=== PATIENT | female | born 1955 | race Caucasian/White ===

== ENCOUNTER 2024-01-22 13:43 | Outpatient (CLI) | payer MEDICARE, SELFPAY ==
[2024-01-22 15:07] LABS: Appearance Urine Clear (Clear); Bacteria Urine None Seen /hpf; Bilirubin Urine Negative (Negative); Blood Urine Negative (Negative); Color Urine Yellow (Yellow); Glucose Urine UA Negative (Negative); Ketones Urine Negative (Negative); Leukocyte Esterase Ur Trace LEU/UL (Negative); Nitrate Urine Negative (Negative); Non Pathogenic Casts 0-2; Protein Urine Negative (Negative); RBC Urine 0-2 /hpf (0-2); Specific Grav Ur 1.017 (1.001-1.035); Squamous Epithelial Cell Urine None Seen /hpf (Few); Urobilinogen Urine 0.2 mg/dL (<2.0); WBC Urine 0-5 /hpf (0-3)
[2024-01-22 15:09] LABS: INR 0.9; Prothrombin Time 12.6 Seconds (11.1-14.7)
[2024-01-22 15:10] LABS: Albumin Level 4.3 g/dL (3.5-5.1); Partial Thromboplastin Time 26.4 Seconds (22.3-36.8)
[2024-01-22 15:21] LABS: Add Urine Microscopic? YES
[2024-01-22 16:34] LABS: MRSA (PCR) NOT DETECTED (NOT DETECTE)
[2024-01-22 17:29] LABS: Hemoglobin A1C 5.1 % (<5.7)
[2024-01-22 18:01] LABS: Urine Cotinine NEGATIVE
== END 2024-01-22 13:44 | disposition home or self-care (01) ==
LOC: ANHSURGERY 13:49
PROVIDERS: PCP Physician Assistant Medical; Visit Provider Orthopaedic Surgery
DX: Z01.818 Encounter for other preprocedural examination (principal); M17.11 Unilateral primary osteoarthritis, right knee
CPT/HCPCS: 80307; 81001; 82040; 83036; 85610; 85730; 87641

== ENCOUNTER 2024-02-07 01:01 | Day surgery (SDC) | payer MEDICARE, SELFPAY ==
[2024-01-22 13:54] VITALS: BMI 38.2
--- NOTE | 2024-01-22 14:08 | PC.NURSE ---
Addendum entered by Agatha Bean RN 01/22/24 14:29: PROCEDURE TIME 7:30 AM Original Note: Report to the Outpatient Waiting Room, entrance under the green pavilion located off [facility], at time __6:00 AM on date __02/07/24____. Planned Procedure Time: _7:330 AM . Time changes happen often and if your time is changed the preop area will call you the afternoon before. - You and your visitor will be asked to self-screen and do not enter if you have any COVID symptoms. - A mask is optional within the hospital at this time. Patients may have clear liquids (water, carbonated beverages, clear teas, apple juice) until 3 hours prior to surgery ( 4:30 AM)with a maximum of 20 ounces. - No food from midnight until time of surgery - Infants may have breast milk until 4 hours before surgery, infant formula 6 hours prior to surgery. - Children will be allowed to drink immediately following surgery. If applicable, please bring a bottle or sippy cup to assist with drinking. Juice, water, soda, and popsicles are readily available. For infants on formula, please bring formula the day of surgery. Pacifiers are allowed. Take the following medications with a SIP of water the morning of surgery: __NONE DO NOT STOP ANY OF YOUR OTHER PRESCRIPTION MEDICATIONS PRIOR TO SURGERY ?EXCEPT THE FOLLOWING Medications to discontinue per physician ___HOLD ALEVE PER DR ORTA. HOLD ALL VITAMINS AND SUPPLEMENTS 3 DAYS PRE OP.LAST DOSE 02/03/24 TOTAL JOINT CLASS 01/24/24 AT 10AM Please no make-up, nail dominican, hairspray, perfume, deodorant, or body powder the day of surgery. No jewelry (including any body piercings) or valuables the day of surgery, leave them at home. Please take a shower or bath the night before, or the morning of, surgery with an antibacterial soap. Wear comfortable, loose fitting clothing. Children are encouraged to wear pajamas. - Jewelry must be removed prior to entering the operating room. Rings and piercings that are not removed may be cut off. - The hospital will not accept responsibility for valuables. - Please leave all valuables, including medications, at home the day of surgery. If you are going home after surgery, a licensed driver license agent must drive you home. - NO public transportation without another adult if you receive anesthesia. - We recommend that an adult stay with you for 24 hours following discharge. - We also recommend that you do not drive, make important decision, drink alcoholic beverages, or take any drugs that were not prescribed by your health care provider for at least 24 hours after your discharge time. Follow any additional instructions given to you from your surgeon. If you or anyone in your household have experienced Covid symptoms in the past week, please notify your surgeon or the nurse liaison at the phone number below for possible testing. VERBAL AND WRITTEN instructions given to __PATIENT and asked if any additional questions and then verbalized understanding. Patient advised to call surgeon office or pre surgery nurse liaison [phone] if any additional questions.
--- NOTE | 2024-02-06 15:53 | WPDANESEPPF ---
Anes - Initial Pre Proc Eval Procedure: Operation Date: 02/07/24 07:30 Proposed Procedures p Right Total Knee Arthroplasty, Left Knee Cortisone Injection - Ace Nelson MD Date/Time: 02/06/24 15:53 Surgeon: Ace Nelson MD Pre Op Diagnosis: bilateral knee djd Patient Data Age: 68 Gender: F Height: 1.52 m Weight: 88.8 kg Allergies Allergy/AdvReac Type Severity Reaction Status Date / Time bupropion [From Wellbutrin] AdvReac Intermediate Other Verified 02/07/24 06:34 Home Medications Medication Instructions Recorded Confirmed Type cholecalciferol (vitamin D3) 50 50 mcg PO DAILY 12/28/22 02/07/24 History mcg (2,000 unit) capsule cyanocobalamin (vitamin B-12) 2,000 mcg PO DAILY #90 tabs 08/16/23 02/07/24 Rx 2,000 mcg tablet calcium carbonate 600 mg-vitamin 1 tablet PO BID 01/22/24 02/07/24 History D3 10 mcg (400 unit) tablet (Calcium 600 + D(3)) naproxen sodium 220 mg capsule 220 mg PO Q12H PRN Pain 01/22/24 02/07/24 History (Aleve) Patient hx anesthesia problems: none Family hx anesthesia problems: none Results Review: All pre-operative results and documents have been reviewed as part of the pre-operative evaluation. [facility] Past Medical History Medical History Arthritis of left knee Arthritis of right knee Asthma Chronic pain of left knee Chronic pain of right knee Dyslipidemia Fatigue Fusion of spine, cervical region C5-C6, C6-C7, Dr. Arreola Obesity Osteoporosis Primary osteoarthritis of left knee Primary osteoarthritis of right knee Pulmonary nodule deemed benign. Vitamin B12 deficiency Vitamin D deficiency Surgical History Surgical History H/O arthroscopic knee surgery bilateral H/O arthroscopy of left knee H/O: hysterectomy History of bilateral carpal tunnel release Hx of cholecystectomy S/P foot surgery, left tendon of heel and spur Family History Family History Other Diabetes mellitus Family history of arthritis Hypertension Social History Social History Smoking status: Never smoker Additional smoking assessment comments: DENIES ANY FORM OF TOBACCO USE Alcohol intake: current Alcohol use details: special occasion Substance use: never Lack of Transportation: No Lack of Food: Never True Current Housing: I Have Housing Concerned About Future Housing: No Difficulty Paying Gas/Electric Bills: No Difficulty Paying for Meds: No Currently Unemployed: No Education: High School Diploma/GED Difficulty w/ Childcare or Family Care: No Living arrangements: with family Occupation/Education: retired Gender identity (if verbalized by the patient): Female Spiritual care concerns: No Anes - Eval Final PreProcedure Day of Procedure Patient weight: obese Heart: regular rate and rhythm Lungs: clear to auscultation Airway: Mallampati scale class II Neurological: alert and oriented Last oral intake: >/= 8 hours ASA classification: II Emergent: no Anesthetic plan: proceed Anesthesia type and monitoring: general LMA and standard monitoring
[2024-02-07] VITALS (13 sets, daily range): BP systolic 102–141; BP diastolic 46–71; PULSE 74–90; RESP 14–18; TEMP 36.1–36.6; O2SAT 93–100
--- NOTE | ~2024-02-07 | XR_ITS ---
EXAMINATION: [id number] DATE: 02/07/2024 10:04 INDICATION: Total right knee arthroplasty. Postop. TECHNIQUE: 2 views of right knee were obtained. COMPARISON: Right knee radiographs 12/11/2023 FINDINGS: There is a total right knee arthroplasty without patellar resurfacing in near-anatomic alig nment. No fracture. There is gas in the joint and soft tissues, consistent with recent surgery. Anter ior skin carmelo are noted. IMPRESSION: 1. Total right knee arthroplasty in near-anatomic alignment. Reviewed, dictated and finalized at location A.
[2024-02-07] MEDS: LACTATED RINGERS 1,000 ML 30 ML IV CONT ×2 (06:25→10:01)
[2024-02-07] MEDS: ACETAMINOPHEN 500 MG TABLET 1000 MG PO (06:25)
[2024-02-07] MEDS: TRANEXAMIC ACID 1,000MG/ISO100 1,000 MG/100 ML BAG 200 MG IVPB (06:30)
--- NOTE | 2024-02-07 07:09 | WPDHPUPDATE1 ---
History and Physical Update Update Date/Time: 02/07/24 07:09 History and Physical has been reviewed, including an updated exam of the patient. There are NO changes in the patient's condition. Risks, benefits, and alternatives have been discussed and questions answered. Patient agrees to proceed with procedure.
--- NOTE | 2024-02-07 07:29 | WPDANESPNB ---
Anes - Peripheral Nerve Block Date/Time: 02/07/24 07:29 I have discussed with the patient/family/POA the placement of a peripheral nerve block for post-operative pain management, including associated risks, benefits, complications, and side effects. Alternative methods of post-operative analgesia were detailed. Questions were solicited and answers provided to the satisfaction of the patient/family/POA. Time-Out: A pre-procedural Time-Out was completed immediately before starting the procedure and confirmed: Patient Identification, Site, Procedure, Patient Position and the Availability of Requisite Equipment. Clinical Indications: Acute post-operative pain management requested by the operative surgeon. Nerve Block Insertion Note Anes-nerve block: adductor canal right Patient position: supine Skin prep: chlorhexidine Needle: 22 gauge, stimulating, insulated echogenic needle. Needle length: 80 mm Technique: ultrasound Injectate: bupivacaine 0.5% with epi 5 mcg/ml (30cc - no epi) Observations: tolerated well Complications: none Procedure start time:: 719 Procedure end time:: 722
[2024-02-07] MEDS: ceFAZolin 2 GM/D5W 50 ML 2 GM/50 ML BAG IVPB ×3 (07:30→23:13)
[2024-02-07] MEDS: SODIUM CHLORIDE 0.9% IV 37.7 ML, MORPHINE SULFATE INJ (*CRX) 2 MG, ROPivacaine HCL 1% 2... INFILTRATE (08:08)
[2024-02-07] MEDS: methylPREDNISolone ACETATE 80 MG/ML VIAL IM (08:45)
[2024-02-07] MEDS: BUPivacaine HCL 0.5% 10 ML AMP 5 ML INFILTRATE (08:46)
[2024-02-07] MEDS: TRANEXAMIC ACID 1,000 MG/10 ML AMPUL 1000 MG IV PUSH (08:57)
--- NOTE | 2024-02-07 09:41 | W.PM.PROC2 ---
Procedure Note - Detailed Date of Procedure 02/07/24 Pre-op Diagnosis bilateral knee djd Post-op Diagnosis Same Procedure Performed RIGHT TKA AND LEFT KNEE INJECTION Surgeon Ace Nelson MD Anesthesia General Description of Procedure THE RIGHT KNEE WAS PREPPED AND DRAPED IN THE STERILE FASHION. THERE WAS A 15 DEGREE FLEXION CONTRACTURE. A MIDLINE SKIN INCISION WAS MADE. A MEDIAL PARAPATELLAR ARTHROTOMY WAS MADE. THE PATELLA WAS EVERTED. THERE WAS TRICOMPARTMENT DJD. THERE WAS MINIMAL PATELLA DJD. AN INTRAMEDULLARY HAMZAH WAS PLACED IN THE FEMUR. A DISTAL FEMORAL CUT WAS MADE IN 5 DEGREES OF VALGUS REMOVING APPROXIMATELY 9 MM OF BONE FROM THE DISTAL FEMUR. THE FEMUR WAS SIZED TO 62.5. A 62.5 FEMORAL CUTTING BLOCK WAS PLACED IN 3 DEGREES OF EXTERNAL ROTATION AND IN ALIGNMENT WITH CANDI'S LINE AND THE TRANSEPICONDYLAR AXIS. ANTERIOR POSTERIOR AND CHAMFER CUTS WERE MADE. THE CUTS WERE EXCELLENT. NEXT AN INTRAMEDULLARY CUTTING GUIDE WAS PLACED IN THE TIBIA. A TRANS TIBIAL CUT WAS MADE ALONG THE LONG AXIS OF THE TIBIA. APPROXIMATELY 10 MM OF BONE WAS REMOVED FROM THE HIGH SIDE OF THE TIBIA. THE TIBIA WAS THEN PLANED TO A SMOOTH SURFACE. POSTERIOR FEMORAL OSTEOPHYTES WERE REMOVED FROM THE FEMORAL CONDYLES. A 71 TIBIAL TRIAL WAS PLACED IN ALIGNMENT WITH THE 1/3 MEDIAL ASPECT OF THE TIBIAL TUBERCLE. THEN A 62.5 FEMORAL TRIAL COMPONENT WAS PLACED. BOTH HAD EXCELLENT FITS. EVENTUALLY A 16 MM POLYETHYLENE TRIAL COMPONENT WAS PLACED. THE KNEE WAS TAKEN THROUGH A RANGE OF MOTION. THE KNEE CAME OUT TO FULL EXTENSION. THERE WAS NO ABNORMAL TILT TO THE PATELLA. THERE WAS GOOD A/P AND VARUS/VALGUS STABILITY. THERE WAS NO EXCESSIVE ROLL BACK WITH FLEXION. THE TRIAL COMPONENTS WERE REMOVED. THEN A 62.5 FEMORAL COMPONENT AND 71 TIBIAL COMPONENT WITH A 16 POLYETHYLENE COMPONENT WERE CEMENTED INTO PLACE. ONCE THE CEMENT WAS HARD THE KNEE WAS TAKEN THROUGH A ROM AGAIN AND FOUND TO BE STABLE WITH NO PATELLA TILT NO EXCESSIVE ROLL BACK WITH FLEXION AND GOOD STABILITY WITH COMPLETE AND FULL EXTENSION. THE KNEE WAS IRRIGATED WITH STERILE BETADINE AND WATER FOR ABOUT 3 MINUTES. THE BLEEDERS WERE CAUTERIZED. THE ARTHROTOMY WAS REPAIRED WITH NUMBER 1 VICRYL. THE SUB CUTANEOUS LAYER WITH 2-0 VICRYL AND THE SKIN WITH IJEOMA. THE WOUND WAS WASHED AND A STERILE DRESSING WAS APPLIED. NEXT THE LEFT KNEE JOINT WAS INJECTED WITH DEPO MEDROL 80 MG 1 CC AND MARCAINE 0.5% 4 CCs. PATIENT WAS EXTUBATED. Estimated Blood Loss -150.0 Pathology None sent Complications No immediate complications Condition Stable Disposition PACU
[2024-02-07] MEDS: fentaNYL CITRATE INJ (*CRX) 100 MCG/2 ML VIAL 25 MCG IV PUSH ×2 (10:48→10:51)
--- NOTE | 2024-02-07 11:29 | ADMGEN ---
This patient, Dayanna Perez, was admitted to [facility] Surg Room 331-02. Patient/family oriented to hospital policies and general routines including ID bracelet, bed and alarms, visiting hours, pain management, procedures, bathroom and other care routines, personal items, smoking policy, room service/diet, and visiting hours. Information on how to activate the Rapid Response Team has been discussed. Patient/Family are encouraged to report perceived risks to care and to ask questions if they do not understand what they are told or what they should do.
[2024-02-07] MEDS: ASPIRIN 325 MG ENTERIC TABLET PO ×2 (11:39→20:52)
[2024-02-07] MEDS: polyethylene glycoL 3350 17 GM POWD.PACK PO (11:39)
[2024-02-07] MEDS: SENNA/DOCUSATE SODIUM TABLET 2 TAB PO ×2 (11:39→17:24)
[2024-02-07] MEDS: CYANOCOBALAMIN 1,000 MCG TABLET 2000 MCG PO (11:40)
[2024-02-07] MEDS: FAMOTIDINE 20 MG TABLET PO ×2 (11:40→20:52)
[2024-02-07] MEDS: CHOLECALCIFEROL 1,000 UNITS TABLET 2000 UNITS PO (11:40)
[2024-02-07] MEDS: CALCIUM/VITAMIN D 500 MG/5 MCG (200 I.U.) TABLET PO ×2 (11:40→17:24)
[2024-02-07] MEDS: KETOROLAC 15 MG/ML VIAL (*BKC) IV PUSH ×3 (11:40→23:10)
[2024-02-07] MEDS: oxyCODONE/ACETAMINOPHEN (*CRX) 10-325 MG TABLET 1 TAB PO ×2 (14:18→20:55)
[2024-02-08 00:42] VITALS: BP 120/62; PULSE 75; RESP 16; TEMP 36.8; O2SAT 94
[2024-02-08 04:42] VITALS: BP 109/43; PULSE 75; RESP 16; TEMP 36.9; O2SAT 95
[2024-02-08] MEDS: ceFAZolin 2 GM/D5W 50 ML 2 GM/50 ML BAG IVPB (06:04)
[2024-02-08] MEDS: KETOROLAC 15 MG/ML VIAL (*BKC) IV PUSH ×2 (06:04→11:37)
[2024-02-08 07:19] LABS: Basophils Absolute Auto 0.1 K/mm3 (0.0-0.1); Basophils Percent Auto 0.5 % (0.2-1.2); Eosinophils Percent Auto 0.2 % (0-4.4); Hemoglobin 12.4 g/dL (12.0-15.0); Immature Granulocyte Absolute 0.16 K/mm3 (0.00-0.031); Immature Granulocyte Percent A 1.5 % (0-0.5); Lymphocytes Absolute Auto 1.77 K/mm3 (0.9-3.2); Lymphocytes Percent Auto 16.8 % (18.3-44.2); Mean Corpuscular Hemoglobin 28.3 pg (26-34); Mean Corpuscular Volume 91.3 fl (80-100); Monocytes Absolute Auto 0.8 K/mm3 (0.1-0.6); Monocytes Percent Auto 7.4 % (2.6-8.5); Neutrophils Absolute Auto 7.8 K/mm3 (1.3-6.7); Neutrophils Percent Auto 73.6 % (45.5-73.1); Platelet Count Result 223 k/mm3 (150-375); Red Blood Count 4.38 M/mm3 (4.2-5.4); Red Cell Distribution Width 13.3 % (11.5-14.5); White Blood Count 10.5 K/mm3 (4.5-10.0)
[2024-02-08 07:32] LABS: Anion Gap 4 mmol/L (4-12); Blood Urea Nitrogen 13 mg/dL (7-17); Calcium 9.2 mg/dL (8.4-10.2); Carbon Dioxide 30 mmol/L (22-30); Chloride 105 mmol/L (98-107); Estimated CRCL calculation 65 ml/min; Estimated Glomerular Filt Rate > 60; Glucose 76 mg/dL (65-110); Potassium 3.7 mmol/L (3.4-5.0); Sodium 139 mmol/L (137-145)
[2024-02-08] MEDS: ASPIRIN 325 MG ENTERIC TABLET PO (07:46)
[2024-02-08] MEDS: CALCIUM/VITAMIN D 500 MG/5 MCG (200 I.U.) TABLET PO (07:46)
[2024-02-08] MEDS: CHOLECALCIFEROL 1,000 UNITS TABLET 2000 UNITS PO (07:47)
[2024-02-08] MEDS: CYANOCOBALAMIN 1,000 MCG TABLET 2000 MCG PO (07:47)
[2024-02-08] MEDS: polyethylene glycoL 3350 17 GM POWD.PACK PO (07:47)
[2024-02-08] MEDS: oxyCODONE/ACETAMINOPHEN (*CRX) 5-325 MG TABLET 1 TABLET PO (07:47)
[2024-02-08] MEDS: FAMOTIDINE 20 MG TABLET PO (07:57)
[2024-02-08] MEDS: SENNA/DOCUSATE SODIUM TABLET 2 TAB PO (07:57)
[2024-02-08 08:00] VITALS: BP 105/70; PULSE 64; RESP 20; TEMP 36.1; O2SAT 100
--- NOTE | 2024-02-08 11:39 | PM.PNORT ---
Progress Note: A&P Assessment and Plan (1) S/P total knee arthroplasty: Qualifiers: Laterality: right Qualified Code(s): Z96.651 - Presence of right artificial knee joint Code(s): Z96.659 - Presence of unspecified artificial knee joint Status: Acute Assessment and Plan: POD #1 : Right TKA Continue PT/OT. WBAT. Walker. HIGH FALL RISK. Continue pain control. Ice Knee. Protect skin. DVT prophylaxis with Aspirin. SCDs. Incentive Spirometry Use reviewed. Monitor Dressing. Change prior to discharge. Bowel Regimen. Dispo: Home with Home Health pending progress with PT/OT Plan Reviewed history, exam, radiographs and current labs with attending MD and covering surgeon, Dr. Nelson, who agrees with current plan as indicated above. No further recommendations from Dr. Nelson at this time. Subjective Subjective Date/Time Seen: 02/08/24 11:39 Post Op day: 1 Interval history: POD #1: Right TKA Patient doing very well. Worked well with PT/OT. Family at bedside. Ready and confident for d/c home today. Review of Systems Review of Systems: All systems reviewed & are unremarkable except as noted in HPI and below Constitutional: Constitutional: Denies fever(s) and Denies headache(s) ENT: Denies headache(s) Cardiovascular: Cardiovascular: Denies chest pain, Denies diaphoresis, Denies palpitations and Denies dyspnea Respiratory: Respiratory: Denies dyspnea Gastrointestinal: Gastrointestinal: Denies abdominal pain, Denies constipation, Denies nausea and Denies vomiting Genitourinary: Genitourinary: Reports nocturia and Denies dysuria Musculoskeletal: Musculoskeletal: Reports arthralgias (Right Knee ) and Reports joint swelling (Right Knee ) Neurologic: Denies headache(s) Endocrine: Endocrine: Denies palpitations Exam Const: General: comfortable and no acute distress Resp: Effort & Inspection: normal respiratory effort Cardio: Rate: regular rate Rhythm: regular rhythm GI: GI Palp: Yes Soft to palpation, No Tenderness to palpation present (GI) and No Guarding due to palpation present (GI) Skin: General skin exam: wounds noted Wounds: wounds noted Other: Incision c/d/i. No surrounding redness/warmth. No hematoma. Mild ecchymosis. No wound dehiscence Neuro: Cognition (Neuro): normal cognition Other: NV intact aside from block. Moves toes. Sensation intact to light touch. +ankle dorsiflexion/plantarflexion. Extrem: Right lower extremity: normal to inspection, knee Details: tenderness (diffuse, mild ) Location: of the patella, swelling (diffuse, consistent with surgical intervention ), abnormal ROM Details: pain with active ROM during, pain with passive ROM during and with range as follows (limited due to recent surgical intervention ); able to extend lower leg actively and ecchymosis (mild ), lower leg (Negative Meche's Sign ) Details: normal to inspection; no erythema and no tenderness, ankle (+ankle dorsiflexion/plantarflexion ) Details: normal to inspection, no edema and normal ROM; no tenderness, no swelling and no ecchymosis and foot Details: normal capillary refill, normal to inspection, vascular exam Details: dorsalis pedis pulse present and motor-sensory exam Details: light-touch normal; no tenderness Left lower extremity: normal to inspection Psych: Mental Status: mental status grossly normal Objective Data Vital Signs Vital Signs: Vital Signs - 24 hr 02/07/24 11:55 02/07/24 12:55 02/07/24 13:15 Temperature 36.6 C 36.6 C Pulse Rate 77 84 Respiratory Rate 18 18 Blood Pressure 128/58 L 134/64 Pulse Oximetry 99 99 Oxygen Delivery Room Air 02/07/24 16:03 02/07/24 20:42 02/08/24 00:42 Temperature 36.1 C L 36.4 C L 36.8 C Pulse Rate 74 75 75 Respiratory Rate 18 16 16 Blood Pressure 127/52 L 102/46 L 120/62 Pulse Oximetry 100 100 94 Oxygen Delivery 02/08/24 04:42 02/08/24 07:45 02/08/24 08:00 Temperature 36.9 C 36.1 C L Pulse Rate
--- NOTE | 2024-02-08 11:40 | PM.DS ---
DS: Admitting Diagnosis Discharge Date 02/08/2024 Admitting Diagnosis Right Knee DJD DS: Discharge Diagnosis Discharge Diagnosis (1) S/P total knee arthroplasty: Qualifiers: Laterality: right Qualified Code(s): Z96.651 - Presence of right artificial knee joint Code(s): Z96.659 - Presence of unspecified artificial knee joint Status: Acute Assessment and Plan: POD #1 : Right TKA Continue PT/OT. WBAT. Walker. HIGH FALL RISK. Continue pain control. Ice Knee. Protect skin. DVT prophylaxis with Aspirin. SCDs. Incentive Spirometry Use reviewed. Monitor Dressing. Change prior to discharge. Bowel Regimen. Dispo: Home with Home Health pending progress with PT/OT Plan Reviewed history, exam, radiographs and current labs with attending MD and covering surgeon, Dr. Nelson, who agrees with current plan as indicated above. No further recommendations from Dr. Nelson at this time. DS: Summary Hospital Course Reason for hospitalization: Right TKA Hospital Course: 68 year old female admitted s/p Right TKA for postoperative medical management, pain control and mobilization with PT/OT. Patient progressed well with PT/OT. Pain and vitals remained stable throughout. The patient has been cleared to be discharged home with home health at this time. All discharge care instructions reviewed at depth. New medications reviewed. Follow up planned for 3 weeks in the outpatient orthopedic clinic with Dr. Nelson. Dr. Nelson in agreement with safe discharge at this time. Status at Discharge Functional status at discharge: uses cane/walker Overall status at discharge: patient is progressing back to baseline Time Spent with Patient Time attestation: Total time spent providing and/or coordinating discharge services: Exam Const: General: comfortable and no acute distress Resp: Effort & Inspection: normal respiratory effort Cardio: Rate: regular rate Rhythm: regular rhythm Skin: General skin exam: wounds noted Wounds: wounds noted Other: Incision c/d/i. No surrounding redness/warmth. No hematoma. Mild ecchymosis. No wound dehiscence Neuro: Cognition (Neuro): normal cognition Other: NV intact aside from block. Moves toes. Sensation intact to light touch. +ankle dorsiflexion/plantarflexion. Extrem: Right lower extremity: normal to inspection, knee Details: tenderness (diffuse, mild ) Location: of the patella, swelling (diffuse, consistent with surgical intervention ), abnormal ROM Details: pain with active ROM during, pain with passive ROM during and with range as follows (limited due to recent surgical intervention ); able to extend lower leg actively and ecchymosis (mild ), lower leg (Negative Meche's Sign ) Details: normal to inspection; no erythema and no tenderness, ankle (+ankle dorsiflexion/plantarflexion ) Details: normal to inspection, no edema and normal ROM; no tenderness, no swelling and no ecchymosis and foot Details: normal capillary refill, normal to inspection, vascular exam Details: dorsalis pedis pulse present and motor-sensory exam Details: light-touch normal; no tenderness Left lower extremity: normal to inspection Psych: Mental Status: mental status grossly normal DS: Data Data Completed and Pending Labs on day of discharge: Labs from last 24 hours 02/08/24 05:43 WBC 10.5 H RBC 4.38 Hgb 12.4 Hct 40.0 MCV 91.3 MCH 28.3 MCHC 31.0 L RDW 13.3 Plt Count 223 MPV 11.0 H Immature Gran % (Auto) 1.5 H Neut % (Auto) 73.6 H Lymph % (Auto) 16.8 L [place] % (Auto) 7.4 Eos % (Auto) 0.2 Baso % (Auto) 0.5 Lymph # (Auto) 1.77 [place] # (Auto) 0.8 H Eos # (Auto) 0.0 Baso # (Auto) 0.1 Abs Immat Gran (auto) 0.16 H Absolute Neuts (auto) 7.8 H Absolute Nucleated RBC 0.000 Nucleated RBC % 0.0 Sodium 139 Potassium 3.7 Chloride 105 Carbon Dioxide 30 Anion Gap 4 BUN 13 Creatinine 0.70 Estim Creat Clear Calc 65 Estimated GFR > 60 Glucose 76 Ca
[2024-02-08] MEDS: oxyCODONE/ACETAMINOPHEN (*CRX) 10-325 MG TABLET 1 TAB PO (11:47)
== END 2024-02-08 12:14 | disposition home health service (06) ==
LOC: ANHSURGERY 05:53 → ANH3MEDSUR 11:00
PROVIDERS: PCP Physician Assistant Medical; Visit Provider Orthopaedic Surgery
PROC: (CPT 27447; principal; 2024-02-07 07:30)
DX: M17.0 Bilateral primary osteoarthritis of knee (principal); G89.18 Other acute postprocedural pain; M81.0 Age-related osteoporosis without current pathological fracture; E55.9 Vitamin D deficiency, unspecified; E53.8 Deficiency of other specified B group vitamins; E66.9 Obesity, unspecified; Z68.38 Body mass index [BMI] 38.0-38.9, adult
CPT/HCPCS: 27447; 20610; 64447; 36415; 73560; 80048; 80307; 81001; 82040; 83036; 85025; 85610; 85730; 86850; 86900; 86901; 87641; 97110; 97116; 97161; 97165; 97530; 97535; A9270; C1713; C1776; J0171; J0690; J1010; J1100; J1170; J1200; J1885; J2250; J2270; J2405; J2704; J2795; J3010; J3370; J7120

== ENCOUNTER 2024-04-19 11:00 | Outpatient (RCR) | payer MEDICARE, SELFPAY ==
--- NOTE | 2024-03-08 17:39 | OPREHPOC ---
Outpatient Therapy Plan of Care This is a Multidisciplinary Plan of Care that may contain components documented by all disciplines (PT, OT, and ST.) PT Problem 1 PT Problem #1 Knowledge Deficit PT Goal 1 Goal Pt will be independent in HEP Pt will verbalize understanding of diagnosis and prognosis Target Visit 10 PT Problem 2 PT Problem #2 Pain PT Goal 1 Goal Pt will report lowest pain rating at 0/10 to show improvement in overall discomfort Target Visit 10 PT Goal 2 Goal Pt will report greatest pain level at 3/10 or less to improve ADLs and activities Target Visit 20 PT Problem 3 PT Problem #3 Impaired Range of Motion PT Goal 1 Goal Pt will demo passive ROM 0-130 to improve gait and mobility Target Visit 10 PT Goal 2 Goal Pt will demo active ROM 0-130 to improve gait and mobility Target Visit 20 PT Problem 4 PT Problem #4 Impaired Strength PT Goal 1 Goal Pt will demo strength of 4+/5 in all tested planes Target Visit 20
--- NOTE | 2024-03-08 17:39 | PTOPEVAL1 ---
Assessment and note entered by Ifrah Lott, PT Evaluation Information Assessment Status Evaluation Diagnosis Right total knee replacement ICD-10 Condition Codes (PT) M25.561,R26.9,Weakness R53.1 Onset 02/07/24 Subjective Information Surgery then home health which patient has been discharged from. Has oxycodone for pain but hasn't had to use it yet does not return to MD for 3 months Likes to garden and be outside Reported Pain Level Pain Score 2: Self Report Assessment PT Clinical Summary Pt presents s/p R TKR 02/07/24. She reports minimal pain at the moment, is able to ambulate without AD, and reports she has completed her home health physical therapy. Today she demos decreased active and passive ROM, decreased knee strength, increased swelling, and gait abnormality. Thus patient will benefit from physical therapy to address deficits and obtain maximal independence with least amount of pain. Plan of Care Interventions Electrical Stimulation,Gait Training,Hot Pack/Cold Pack,Intermittent Compression,Manual Therapy, Neuro Re-education,Therapeutic Activities, Therapeutic Exercise,Self-Care/Home Management PT Services Indicated Yes Treatment Frequency and 1-3 x weekly x 20 visits Duration These treatments will address the objective and functional deficits as defined above. The patient will be advanced safely and appropriately in order for the patient to progress towards his/her prior level of function. Additional exercises will be introduced and as well as a comprehensive home exercise program upon discharge, if needed, ?to ensure carryover of functional gains achieved in the clinic. This treatment plan has been reviewed and agreement upon by the patient.
--- NOTE | 2024-04-10 13:27 | PTOPPROG ---
Assessment and note entered by Verenice Rios, PT Re-eval Information Assessment Status Progress Diagnosis Right total knee replacement ICD-10 Condition Codes (PT) M25.561,R26.9,Weakness R53.1 Onset 02/07/24 Subjective Information Pt denies any increased pain. The only time she experience pain with 2/10 intensity rating is after picking beans or working in the yard. Reports she worked all day in the garden yesterday and is feeling sore today. Also reports that she went down on the floor to look at something and accidentally put weight on both knees as she is getting back up. Pt denies falling, states she purposely went down to the floor to see something up close. Assessment PT Clinical Summary Pt is a 68yo female who presents to therapy s/p R TKR 02/07/24. She reports no pain at the moment, is able to ambulate without AD, and reports she has been compliant with the stretching HEPs. She has received outpatient Physical Therapy of a total of 10 visits today. She demos improved mobility and strength and significantly reduced pain levels. However, due to swelling and soft tissue tightness , decreased patellar mobility and decreased ambulation endurance, pt will benefit from additional sessions for therapy to address remaining deficits and prepare for her upcoming series of long distance driving trips that she had planned. Plan of Care Interventions Electrical Stimulation,Gait Training,Hot Pack/Cold Pack,Manual Therapy,Neuro Re-education,Patient/ Caregiver Education,Therapeutic Activities, Therapeutic Exercise Other Interventions IASTM, TAPING PT Services Indicated Yes Treatment Frequency and 3x/wk x 10 visits Duration These treatments will address the objective and functional deficits as defined above. The patient will be advanced safely and appropriately in order for the patient to progress towards his/her prior level of function. Additional exercises will be introduced and as well as a comprehensive home exercise program upon discharge, if needed, ?to ensure carryover of functional gains achieved in the clinic. This treatment plan has been reviewed and agreement upon by the patient.
--- NOTE | 2024-04-24 12:49 | PTOPDC ---
Assessment and note entered by Verenice Rios, PT Evaluation Information Assessment Status Discharge Diagnosis Right total knee replacement ICD-10 Condition Codes (PT) M25.561,R26.9,Weakness R53.1 Onset 02/07/24 Subjective Information Pt denies any increased pain. The only time she experience pain with 2/10 intensity rating is after picking beans or working in the yard. Reports she worked all day in the garden yesterday and is feeling sore today. Also reports that she went down on the floor to look at something and accidentally put weight on both knees as she is getting back up. Pt denies falling, states she purposely went down to the floor to see something up close. Assessment PT Clinical Summary Pt received a total of 13 PT sessions and has demo gains in strength and mobility. Reports no pain with normal activities, however she would feel mild soreness after repeated bending which is relieved with cryotherapy as PT recommended. States compliant with HEPs, no further skilled PT necessary at this time. Plan of Care PT Services Indicated No
--- NOTE | 2024-04-24 12:50 | PTOPDC ---
Assessment and note entered by Verenice Rios, PT Discharge Information Assessment Status Discharge Diagnosis Right total knee replacement ICD-10 Condition Codes (PT) M25.561,R26.9,Weakness R53.1 Onset 02/07/24 Subjective Information Pt denies any increased pain. The only time she experience pain with 1-2/10 intensity rating is after picking beans or working in the yard. Reports she worked all day in the garden yesterday and is feeling sore today. Also reports that she went down on the floor to look at something and accidentally put weight on both knees as she is getting back up. Pt denies falling, states she purposely went down to the floor to see something up close. Assessment PT Clinical Summary Pt received a total of 13 PT sessions and reports has demo gains in strength and mobility. Reports no pain with normal activities, however she would feel mild soreness after repeated bending which is relieved with cryotherapy as PT recommended. States compliant with HEPs, no further skilled PT necessary at this time. Plan of Care PT Services Indicated No
== END 2024-04-25 13:16 | disposition home or self-care (01) ==
LOC: ANHHIPT 11:00
PROVIDERS: PCP Physician Assistant Medical; Visit Provider Orthopaedic Surgery
DX: M17.10 Unilateral primary osteoarthritis, unspecified knee (principal); Z96.659 Presence of unspecified artificial knee joint
CPT/HCPCS: 97014; 97016; 97110; 97112; 97116; 97140; 97161; 97162; 97530; 97750; G0283

== ENCOUNTER 2024-06-21 09:45 | Outpatient (CLI) | payer MEDICARE, SELFPAY ==
[2024-06-21 11:22] LABS: INR 0.9; Partial Thromboplastin Time 23.4 Seconds (22.3-36.8); Prothrombin Time 12.7 Seconds (11.1-14.7)
[2024-06-21 11:59] LABS: Hemoglobin A1C 5.3 % (<5.7)
[2024-06-21 12:02] LABS: Add Urine Microscopic? NO; Appearance Urine Clear (Clear); Bilirubin Urine Negative (Negative); Blood Urine Negative (Negative); Color Urine Yellow (Yellow); Glucose Urine UA Negative (Negative); Ketones Urine Negative (Negative); Leukocyte Esterase Ur Negative LEU/UL (Negative); Nitrate Urine Negative (Negative); Protein Urine Negative (Negative); Specific Grav Ur 1.011 (1.001-1.035); Urobilinogen Urine 0.2 mg/dL (<2.0); pH Urine 5.5 (5.0-9.0)
[2024-06-21 12:09] LABS: Urine Cotinine NEGATIVE
[2024-06-21 12:22] LABS: MRSA (PCR) NOT DETECTED (NOT DETECTE)
== END 2024-06-21 09:46 | disposition home or self-care (01) ==
LOC: ANHSURGERY 09:51
PROVIDERS: PCP Physician Assistant Medical; Visit Provider Orthopaedic Surgery
DX: M17.12 Unilateral primary osteoarthritis, left knee (principal); Z01.818 Encounter for other preprocedural examination
CPT/HCPCS: 80307; 81003; 83036; 85610; 85730; 86850; 86900; 86901; 87641

== ENCOUNTER 2024-07-02 02:36 | Day surgery (SDC) | payer MEDICARE, SELFPAY ==
[2024-06-21 09:55] VITALS: BMI 37.9
--- NOTE | 2024-06-21 10:17 | PC.NURSE ---
Report to the Outpatient Waiting Room, entrance under the green pavilion located off [facility], at time _6:30 AM on date _07/02/24 . Planned Procedure Time: _8:30 AM .? Time changes happen often and if your time is changed the preop area will call you the afternoon before. - You and your visitor will be asked to self-screen and do not enter if you have any COVID symptoms. Please call surgeon if you need to reschedule. - A mask is optional within the hospital at this time. Patients may have clear liquids (water, carbonated beverages, clear teas, apple juice) until 3 hours prior to surgery( 5:30 AM) with a maximum of 20 ounces. - No food from midnight until time of surgery and no smoking - Infants may have breast milk until 4 hours before surgery, formula 6 hours prior to surgery. - Children will be allowed to drink immediately following surgery.? If applicable, please bring a bottle or sippy cup to assist with drinking. Juice, water, soda, and popsicles are readily available.? For infants on formula, please bring formula the day of surgery.? Pacifiers are allowed. Take only the following medications with a SIP of water on the morning of surgery: __NONE DO NOT STOP ANY OF YOUR OTHER PRESCRIPTION MEDICATIONS PRIOR TO SURGERY EXCEPT THE FOLLOWING Medications to discontinue per physician _PT STATES HOLD ALEVE 7 DAYS PRE OP PER DR ORTA LAST DOSE06/24/24. MAY TAKE TYLENOL IF NEEDED FOR PAIN Please no make-up, nail brazilian, hairspray, perfume, deodorant, or body powder the day of surgery.? No jewelry (including any body piercings) or valuables the day of surgery, leave them at home.? Please take a shower or bath the night before, or the morning of, surgery with an antibacterial soap.? Wear comfortable, loose fitting clothing.? Children are encouraged to wear pajamas. - Jewelry must be removed prior to entering the operating room.? Rings and piercings that are not removed may be cut off. - The hospital will not accept responsibility for valuables.? - Please leave all valuables, including medications, at home the day of surgery. If you are going home after surgery, a licensed special events driver must drive you home.? - NO public transportation without another adult if you receive anesthesia. - We recommend that an adult stay with you for 24 hours following discharge. - We also recommend that you do not drive, make important decision, drink alcoholic beverages, or take any drugs that were not prescribed by your health care provider for at least 24 hours after your discharge time. Follow any additional instructions given to you from your surgeon. VEFBAL AND WRITTEN instructions given to _PATIENT and asked if any additional questions and then verbalized understanding. Patient advised to call surgeon office or pre surgery nurse liaison [phone] if any additional questions.
[2024-06-21 10:36] VITALS: BP 130/65; PULSE 68; RESP 18; TEMP 36.7; O2SAT 99
[2024-07-02] VITALS (12 sets, daily range): BP systolic 105–144; BP diastolic 51–70; PULSE 71–79; RESP 14–20; TEMP 36.3–36.6; O2SAT 95–100; BMI 41.2
--- NOTE | ~2024-07-02 | XR_ITS ---
EXAMINATION: [id number] DATE: 07/02/2024 11:24 INDICATION: Postoperative evaluation following left total knee arthroplasty. TECHNIQUE: Anteroposterior and lateral views of the left knee were obtained. COMPARISON: None. FINDINGS: Left total knee arthroplasty without patellar resurfacing appears well seated and in near anatomic al ignment. No fractures identified. Anterior skin carmelo and expected postoperative subcutaneous and intra-articular gas. IMPRESSION: 1. Left total knee arthroplasty, negative for postoperative purposes. Reviewed, dictated and finalized at location B. PHOTO INSTALLER
[2024-07-02] MEDS: ACETAMINOPHEN 500 MG TABLET 1000 MG PO (06:55)
[2024-07-02] MEDS: LACTATED RINGERS 1,000 ML 30 ML IV CONT ×2 (07:17→11:08)
--- NOTE | 2024-07-02 07:45 | WPDANESEPPF ---
Anes - Initial Pre Proc Eval Procedure: Operation Date: 07/02/24 08:30 Proposed Procedures p Left Total Knee Arthroplasty - Ace Nelson MD Date/Time: 07/02/24 07:45 Surgeon: Ace Nelson MD Pre Op Diagnosis: Left Knee DJD Patient Data Age: 68 Gender: F Height: 1.52 m Weight: 88.4 kg Last Vital Signs Temp 36.3 C L 07/02/24 07:17 Pulse 78 07/02/24 07:17 Resp 16 07/02/24 07:17 BP 144/64 H 07/02/24 07:17 Pulse Ox 100 07/02/24 07:17 O2 Del Method Room Air 07/02/24 07:17 Allergies Allergy/AdvReac Type Severity Reaction Status Date / Time bupropion [From Wellbutrin] AdvReac Intermediate Other Verified 07/02/24 06:58 Home Medications Medication Instructions Recorded Confirmed Type naproxen sodium 220 mg capsule 440 mg PO Q12H PRN Pain 01/22/24 07/02/24 History (Aleve) Patient hx anesthesia problems: none Family hx anesthesia problems: none Results Review: All pre-operative results and documents have been reviewed as part of the pre-operative evaluation. [facility] Past Medical History Medical History Arthritis of left knee Arthritis of right knee Asthma Chronic pain of left knee Chronic pain of right knee Dyslipidemia Fatigue Fusion of spine, cervical region C5-C6, C6-C7, Dr. Arreola Obesity Osteoporosis Primary osteoarthritis of left knee Primary osteoarthritis of right knee Pulmonary nodule deemed benign. Vitamin B12 deficiency Vitamin D deficiency Surgical History Surgical History H/O arthroscopic knee surgery bilateral H/O arthroscopy of left knee H/O: hysterectomy History of bilateral carpal tunnel release Hx of cholecystectomy S/P foot surgery, left tendon of heel and spur S/P total knee arthroplasty RT TKA 02/07/24 Family History Family History Other Diabetes mellitus Family history of arthritis Hypertension Social History Social History Social History: 06/13/24 very confident with medical forms Smoking status: Never smoker Additional smoking assessment comments: DENIES ANY FORM OF TOBACCO USE Alcohol intake: former Alcohol use details: special occasion Substance use: never Do You Feel Safe in your Home?: Yes Lack of Transportation: No Lack of Food: Never True Current Housing: I Have Housing Concerned About Future Housing: No Difficulty Paying Gas/Electric Bills: No Difficulty Paying for Meds: No Currently Unemployed: No Education: High School Diploma/GED Difficulty w/ Childcare or Family Care: No Living arrangements: with family Occupation/Education: retired Gender identity (if verbalized by the patient): Female Spiritual care concerns: No Anes - Eval Final PreProcedure Day of Procedure 07/02/24 07:45 Patient weight: obese Heart: regular rate and rhythm Lungs: clear to auscultation Airway: Mallampati scale class II Neurological: alert and oriented Last oral intake: >/= 8 hours ASA classification: II Emergent: no Anesthetic plan: proceed Anesthesia type and monitoring: general LMA and standard monitoring Results Review: All pre-operative results and documents have been reviewed as part of the pre-operative evaluation. Informed Consent: The patient's anesthetic plan and its attendant risks and benefits were discussed with the patient/family/POA. Questions were solicited and answers provided to the satisfaction of the patient/family/POA.
[2024-07-02] MEDS: TRANEXAMIC ACID 1,000MG/ISO100 1,000 MG/100 ML BAG 200 MG IVPB (07:52)
--- NOTE | 2024-07-02 07:52 | WPDANESPNB ---
Anes - Peripheral Nerve Block Date/Time: 07/02/24 07:52 I have discussed with the patient/family/POA the placement of a peripheral nerve block for post-operative pain management, including associated risks, benefits, complications, and side effects. Alternative methods of post-operative analgesia were detailed. Questions were solicited and answers provided to the satisfaction of the patient/family/POA. Time-Out: A pre-procedural Time-Out was completed immediately before starting the procedure and confirmed: Patient Identification, Site, Procedure, Patient Position and the Availability of Requisite Equipment. Clinical Indications: Acute post-operative pain management requested by the operative surgeon. Nerve Block Insertion Note Anes-nerve block: adductor canal left Patient position: supine Skin prep: chlorhexidine Needle: 22 gauge, stimulating, insulated echogenic needle. Needle length: 80 mm Technique: ultrasound Injectate: bupivacaine 0.5% with epi 5 mcg/ml (30cc - no epi) Observations: tolerated well Complications: none Procedure start time:: 843 Procedure end time:: 846
--- NOTE | 2024-07-02 08:46 | WPDHPUPDATE1 ---
History and Physical Update Update Date/Time: 07/02/24 08:46 History and Physical has been reviewed, including an updated exam of the patient. There are NO changes in the patient's condition. Risks, benefits, and alternatives have been discussed and questions answered. Patient agrees to proceed with procedure.
[2024-07-02] MEDS: ceFAZolin 2 GM/D5W 50 ML 2 GM/50 ML BAG IVPB ×3 (08:57→22:05)
[2024-07-02] MEDS: SODIUM CHLORIDE 0.9% IV 37.7 ML, MORPHINE SULFATE INJ (*CRX) 2 MG, ROPivacaine HCL 1% 2... INFILTRATE (09:24)
[2024-07-02] MEDS: TRANEXAMIC ACID 1,000 MG/10 ML AMPUL 1000 MG IV PUSH (10:31)
[2024-07-02] MEDS: fentaNYL CITRATE INJ (*CRX) 100 MCG/2 ML VIAL 25 MCG IV PUSH ×6 (11:23→11:45)
--- NOTE | 2024-07-02 11:42 | W.PM.PROC2 ---
Procedure Note - Detailed Date of Procedure 07/02/24 Pre-op Diagnosis Left Knee DJD Post-op Diagnosis Same Procedure Performed L TKA Surgeon Ace Nelson MD Anesthesia General Description of Procedure THE LEFT KNEE WAS PREPPED AND DRAPED IN THE STERILE FASHION. THERE WAS A 10 DEGREE FLEXION CONTRACTURE. A MIDLINE SKIN INCISION WAS MADE. A MEDIAL PARAPATELLAR ARTHROTOMY WAS MADE. THE PATELLA WAS EVERTED. THERE WAS TRICOMPARTMENT DJD. THERE WAS MINIMAL PATELLA DJD. AN INTRAMEDULLARY HAMZAH WAS PLACED IN THE FEMUR. A DISTAL FEMORAL CUT WAS MADE IN 5 DEGREES OF VALGUS REMOVING APPROXIMATELY 9 MM OF BONE FROM THE DISTAL FEMUR. THE FEMUR WAS SIZED TO 60. A 65 FEMORAL CUTTING BLOCK WAS PLACED IN 3 DEGREES OF EXTERNAL ROTATION AND IN ALIGNMENT WITH CANDI'S LINE AND THE TRANSEPICONDYLAR AXIS. ANTERIOR POSTERIOR AND CHAMFER CUTS WERE MADE. THE CUTS WERE EXCELLENT. NEXT AN INTRAMEDULLARY CUTTING GUIDE WAS PLACED IN THE TIBIA. A TRANS TIBIAL CUT WAS MADE ALONG THE LONG AXIS OF THE TIBIA. APPROXIMATELY 10 MM OF BONE WAS REMOVED FROM THE HIGH SIDE OF THE TIBIA. THE TIBIA WAS THEN PLANED TO A SMOOTH SURFACE. POSTERIOR FEMORAL OSTEOPHYTES WERE REMOVED FROM THE FEMORAL CONDYLES. A 67 TIBIAL TRIAL WAS PLACED IN ALIGNMENT WITH THE 1/3 MEDIAL ASPECT OF THE TIBIAL TUBERCLE. THEN A 60 FEMORAL TRIAL COMPONENT WAS PLACED. BOTH HAD EXCELLENT FITS. EVENTUALLY A 12 MM POLYETHYLENE TRIAL COMPONENT WAS PLACED. THE KNEE WAS TAKEN THROUGH A RANGE OF MOTION. THE KNEE CAME OUT TO FULL EXTENSION. THERE WAS NO ABNORMAL TILT TO THE PATELLA. THERE WAS GOOD A/P AND VARUS/VALGUS STABILITY. THERE WAS NO EXCESSIVE ROLL BACK WITH FLEXION. THE TRIAL COMPONENTS WERE REMOVED. THEN A 60 FEMORAL COMPONENT AND 67 TIBIAL COMPONENT WITH A 12 POLYETHYLENE COMPONENT WERE CEMENTED INTO PLACE. ONCE THE CEMENT WAS HARD THE KNEE WAS TAKEN THROUGH A ROM AGAIN AND FOUND TO BE STABLE WITH NO PATELLA TILT NO EXCESSIVE ROLL BACK WITH FLEXION AND GOOD STABILITY WITH COMPLETE AND FULL EXTENSION. THE KNEE WAS IRRIGATED WITH STERILE BETADINE AND WATER FOR ABOUT 3 MINUTES. THE BLEEDERS WERE CAUTERIZED. THE ARTHROTOMY WAS REPAIRED WITH NUMBER 1 VICRYL. THE SUB CUTANEOUS LAYER WITH 2-0 VICRYL AND THE SKIN WITH IJEOMA. THE WOUND WAS WASHED AND A STERILE DRESSING WAS APPLIED. PATIENT WAS EXTUBATED. Estimated Blood Loss -150.0 Pathology None sent Complications No immediate complications Condition Stable Disposition PACU
[2024-07-02] MEDS: HYDROmorphone HCL INJ (*CRX) 1 MG/ML SYR 0.5 MG IV PUSH ×3 (11:59→16:01)
[2024-07-02] MEDS: ASPIRIN 325 MG ENTERIC TABLET PO ×2 (13:08→20:52)
[2024-07-02] MEDS: oxyCODONE/ACETAMINOPHEN (*CRX) 10-325 MG TABLET 1 TAB PO ×2 (13:08→19:27)
[2024-07-02] MEDS: FAMOTIDINE 20 MG TABLET PO ×2 (13:08→20:52)
[2024-07-02] MEDS: KETOROLAC 15 MG/ML VIAL (*BKC) IV PUSH ×3 (13:09→23:54)
[2024-07-02] MEDS: IBUPROFEN IV 800 MG/200 ML 800 MG/200 ML BAG 400 MG IVPB (22:33)
[2024-07-02] MEDS: diazePAM (*CRX) 5 MG TABLET PO (22:33)
[2024-07-03 03:36] VITALS: BP 98/47; PULSE 64; RESP 16; TEMP 36.3; O2SAT 99
[2024-07-03] MEDS: KETOROLAC 15 MG/ML VIAL (*BKC) IV PUSH ×2 (05:59→12:03)
[2024-07-03] MEDS: oxyCODONE/ACETAMINOPHEN (*CRX) 5-325 MG TABLET 1 TABLET PO (06:00)
[2024-07-03] MEDS: diazePAM (*CRX) 5 MG TABLET PO (06:00)
[2024-07-03] MEDS: ceFAZolin 2 GM/D5W 50 ML 2 GM/50 ML BAG IVPB (06:01)
[2024-07-03 06:46] LABS: Basophils Percent Auto 0.6 % (0.2-1.2); Eosinophils Absolute Auto 0.1 K/mm3 (0-0.3); Eosinophils Percent Auto 0.7 % (0-4.4); Hematocrit 34.3 % (37.0-47.0); Hemoglobin 10.6 g/dL (12.0-15.0); Immature Granulocyte Absolute 0.03 K/mm3 (0.00-0.031); Immature Granulocyte Percent A 0.4 % (0-0.5); Lymphocytes Absolute Auto 0.77 K/mm3 (0.9-3.2); Mean Corpuscular HGB Conc 30.9 g/dl (32-36); Mean Corpuscular Hemoglobin 27.9 pg (26-34); Mean Corpuscular Volume 90.3 fl (80-100); Mean Platelet Volume 10.4 fl (7.4-10.4); Monocytes Absolute Auto 0.6 K/mm3 (0.1-0.6); Monocytes Percent Auto 8.6 % (2.6-8.5); Neutrophils Absolute Auto 5.5 K/mm3 (1.3-6.7); Neutrophils Percent Auto 78.7 % (45.5-73.1); Platelet Count Result 185 k/mm3 (150-375); Red Cell Distribution Width 13.5 % (11.5-14.5)
[2024-07-03 06:59] LABS: Anion Gap 1 mmol/L (4-12); Blood Urea Nitrogen 11 mg/dL (7-17); Calcium 8.8 mg/dL (8.4-10.2); Carbon Dioxide 33 mmol/L (22-30); Chloride 105 mmol/L (98-107); Estimated CRCL calculation 79 ml/min; Estimated Glomerular Filt Rate > 60; Glucose 83 mg/dL (65-110); Potassium 4.5 mmol/L (3.4-5.0); Sodium 139 mmol/L (137-145)
[2024-07-03] MEDS: ASPIRIN 325 MG ENTERIC TABLET PO (07:38)
[2024-07-03] MEDS: SENNA/DOCUSATE SODIUM TABLET 2 TAB PO (07:38)
[2024-07-03] MEDS: FAMOTIDINE 20 MG TABLET PO (07:38)
[2024-07-03 10:02] VITALS: PULSE 73; RESP 18; TEMP 36.4; O2SAT 100
[2024-07-03 10:10] VITALS: O2SAT 100
[2024-07-03 10:21] VITALS: BP 102/64
[2024-07-03 14:02] VITALS: BP 95/45; PULSE 68; RESP 18; TEMP 36.4; O2SAT 100
--- NOTE | 2024-07-03 14:37 | WPDPN ---
Progress Note: A&P Assessment and Plan (1) S/P total knee arthroplasty: Code(s): Z96.659 - Presence of unspecified artificial knee joint Status: Acute Plan POD 1 DOING WELL. OK TO DC HOME F/U IN 3 WEEKS Subjective Date/time seen: 07/03/24 14:37 Interval history: POD 1 DOING WELL. NO CALF PAIN. GOOD PROGRESS WITH PT Exam Extrem: Other: VSS AFEBRILE DRESSING DRY NV INTACT NEG HOMANS SIGN THIGH AND CALF SOFT NON TENDER Objective Data Vital Signs Vital Signs: Vital Signs - 24 hr 07/02/24 16:40 07/02/24 21:24 07/02/24 20:00 Temperature 36.6 C 36.3 C L Pulse Rate 75 71 Respiratory Rate 18 18 Blood Pressure 108/61 105/61 Pulse Oximetry 95 98 Oxygen Delivery Room Air 07/03/24 03:36 07/03/24 08:00 07/03/24 10:10 Temperature 36.3 C L Pulse Rate 64 Respiratory Rate 16 Blood Pressure 98/47 L Pulse Oximetry 99 100 Oxygen Delivery Room Air Room Air 07/03/24 10:02 07/03/24 10:21 07/03/24 14:02 Temperature 36.4 C L 36.4 C L Pulse Rate 73 68 Respiratory Rate 18 18 Blood Pressure 102/64 95/45 L Pulse Oximetry 100 100 Oxygen Delivery Intake/Output Intake/Output: Intake & Output 06/30/24 07/01/24 07/02/24 07/03/24 23:59 23:59 23:59 23:59 Intake Total 370 480 Balance 370 480 Meds/Results Medications: Active Medications Generic Name Dose Route Start Last Admin Trade Name Freq PRN Reason Stop Dose Admin Acetaminophen 500 mg 07/02/24 12:17 Acetaminophen 500 Mg Tablet PO Q6H PRN Pain Rated 1-3 Aspirin 325 mg 07/02/24 12:17 07/03/24 07:38 Aspirin 325 Mg Enteric Tablet PO 325 mg Q12HR JULIAN Administration Diazepam 5 mg 07/02/24 12:17 07/03/24 06:00 Diazepam (*Crx) 5 Mg Tablet PO 5 mg Q8H PRN Administration Spasms Diphenhydramine HCl 25 mg 07/02/24 12:17 Diphenhydramine Hcl Inj 50 Mg/Ml Vial IV PUSH Q6H PRN Itching Famotidine 20 mg 07/02/24 12:17 07/03/24 07:38 Famotidine 20 Mg Tablet PO 20 mg Q12HR JULIAN Administration Hydromorphone HCl 1 mg 07/02/24 12:17 Hydromorphone Hcl Inj (*Crx) 1 Mg/Ml Syr IV PUSH Q2H PRN Breakthrough Pain Rated 7-10 or NPO Hydromorphone HCl 0.5 mg 07/02/24 12:17 07/02/24 16:01 Hydromorphone Hcl Inj (*Crx) 1 Mg/Ml Syr IV PUSH 0.5 mg Q2H PRN Administration Breakthrough Pain Rated 4-6 or NPO Ibuprofen 800 mg in 200 mls @ 400 mls/hr 07/02/24 12:17 07/02/24 22:33 Caldolor 800 Mg/200 Ml IVPB 400 mls/hr Q6H PRN Administration Breakthrough Pain Rated 1-3 or NPO Naloxone HCl 0.1 mg 07/02/24 12:17 Naloxone Hcl 0.4 Mg/Ml Vial IV PUSH Q2M PRN Opiate Reversal Ondansetron HCl 4 mg 07/02/24 12:17 Ondansetron Inj 4 Mg/2 Ml Vial IV PUSH Q4H PRN Nausea And Vomiting Oxycodone/Acetaminophen 1 tablet 07/02/24 12:17 07/03/24 06:00 Oxycodone/Acetaminophen (*Crx) 5-325 Mg Tablet PO 1 tablet Q4H PRN Administration Pain Rated 4-6 Oxycodone/Acetaminophen 1 tab 07/02/24 12:17 07/02/24 19:27 Oxycodone/Acetaminophen (*Crx) 10-325 Mg Tablet PO 1 tab Q6H PRN Administration Pain Rated 7-10 Polyethylene Glycol 17 gm 07/02/24 12:17 07/03/24 07:40 Polyethylene Glycol 3350 17 Gm Powd.Pack PO Not Given QAM JULIAN Senna/Docusate Sodium 2 tab 07/02/24 12:17 07/03/24 07:38 Senna/Docusate Sodium Tablet PO 2 tab BID JULIAN Administration Radiology Results: ITS Impressions Knee X-Ray 07/02/24 11:30 IMPRESSION: 1. Left total knee arthroplasty, negative for postoperative purposes. Labs Labs: Laboratory Results - last 24 hr 07/03/24 05:57 WBC 7.0 RBC 3.80 L Hgb 10.6 L Hct 34.3 L MCV 90.3 MCH 27.9 MCHC 30.9 L RDW 13.5 Plt Count 185 MPV 10.4 Immature Gran % (Auto) 0.4 Neut % (Auto) 78.7 H Lymph % (Auto) 11.0 L [place] % (Auto) 8.6 H Eos % (Auto) 0.7 Baso % (Auto) 0.6 Lymph # (Auto) 0.77 L [place] # (Auto) 0.6 Eos # (Auto) 0.1 Baso # (Auto) 0.0 Abs Immat Gran (auto) 0.03 Absolute Neuts (auto) 5.5 Absolute Nucleated RBC 0.000 Nucleated RBC % 0.0 Sodium 139 Potassium 4.5 Chloride 105 Carbon Dioxide 33 H Anion Gap 1 L BUN 11 Creatinine 0.60 L Estim Creat Clear Calc 79 Estimated GFR > 60 Glucose 83 Calcium 8.8
--- NOTE | 2024-07-03 14:41 | P.DS_ITS ---
DS: Admitting Diagnosis Discharge Date 07/03/24 Admitting Diagnosis LEFT KNEE DJD DS: Discharge Diagnosis Discharge Diagnosis (1) S/P total knee arthroplasty: Code(s): Z96.659 - Presence of unspecified artificial knee joint Status: Acute DS: Summary Hospital Course Reason for hospitalization: LEFT TKA Hospital Course: PATIENT WAS ADMITTED S/P TOTAL KNEE ARTHROPLASTY FOR POSTOPERATIVE MEDICAL MANAGEMENT, PAIN CONTROL AND MOBILIZATION WITH PHYSICAL AND OCCUPATIONAL THERAPY. THE PATIENT PROGRESSED WELL WITH PT/OT. LABS AND VITALS REMAINED STABLE AND PAIN WELL CONTROLLED. THE PATIENT HAS BEEN CLEARED TO BE DISCHARGED HOME. FOLLOW UP APPOINTMENT SCHEDULED. DISCHARGE INSTRUCTIONS DISCUSSED AT LENGTH WITH THE PATIENT. MEDICATIONS REVIEWED. Status at Discharge Cognitive/behavioral status at discharge: STABLE Time Spent with Patient Time attestation: Total time spent providing and/or coordinating discharge services: DS: Data Data Completed and Pending Labs on day of discharge: Labs from last 24 hours 07/03/24 05:57 WBC 7.0 RBC 3.80 L Hgb 10.6 L Hct 34.3 L MCV 90.3 MCH 27.9 MCHC 30.9 L RDW 13.5 Plt Count 185 MPV 10.4 Immature Gran % (Auto) 0.4 Neut % (Auto) 78.7 H Lymph % (Auto) 11.0 L [place] % (Auto) 8.6 H Eos % (Auto) 0.7 Baso % (Auto) 0.6 Lymph # (Auto) 0.77 L [place] # (Auto) 0.6 Eos # (Auto) 0.1 Baso # (Auto) 0.0 Abs Immat Gran (auto) 0.03 Absolute Neuts (auto) 5.5 Absolute Nucleated RBC 0.000 Nucleated RBC % 0.0 Sodium 139 Potassium 4.5 Chloride 105 Carbon Dioxide 33 H Anion Gap 1 L BUN 11 Creatinine 0.60 L Estim Creat Clear Calc 79 Estimated GFR > 60 Glucose 83 Calcium 8.8 Procedures/Treatments: LEFT TKA Discharge Plan Discharge Patient Disposition: Home, Self-Care Discharge Instructions: ACE NELSON M.D. [facility] [address] [place] [address] POST OPERATIVE DISCHARGE INSTRUCTIONS FOLLOWING TOTAL KNEE REPLACEMENT SURGERY ? Your dressing will be changed prior to your discharge. You will be sent home with one additional dressing to be changed on post op day 7 by the home health RN. Your carmelo will be removed on the 14th day after surgery and steri-strips will be placed. Please practice good hand hygiene and do not touch your incision in order to prevent infection. ? You may shower with your dressing but do not submerge in a bath tub. ? Do not drive or operate machinery until you are released by Dr. Nelson. ? Do not walk without a walker for any reason until you are released by Dr. Nelson. ? Continue to use your ice machine. Please use a towel or pillow case to protect your skin before applying your ice machine. ? Do NOT place a pillow under your knee. You may use a pillow from the calf down if needed. This will prevent a flexion contracture postoperatively. ? You may begin use of your CPM machine at home if you have been given one pre- operatively. DO NOT USE WHILE YOU ARE SLEEPING. ? Your first post op appointment was sent to you via mail preoperatively. If you have any questions or are unable to make your appointment, please contact our office for scheduling questions. ? Your medications have been sent to your pharmacy. You have been sent home with pain medication. We have also sent you with a stool softener as narcotics can cause constipation. Please keep this in mind during your postoperative recovery. If you are not experiencing regular bowel movements, please contact our office for further instruction. ? Please contact our office with any questions/concerns regarding your knee at [phone]. Stand Alone Forms: General Discharge Instructions Follow-up/Referrals: Ace Nelson MD [Physician] - Discharge Medications: New aspirin 325 mg Tablet,Delayed Release (Dr/Ec) 325 mg PO Q12HR 28 Days Qty: 56 0RF oxycodone-acetaminophen 5-325 mg Tablet 1 tablet PO Q4-6H PRN (Reason: pain) Qty: 40 0RF Held naproxen sodium [Aleve] 220 mg Capsule 440 mg PO Q12H PRN (Reason: Pain) Hold Instructions: Resume on 07/30/24.
[2024-07-03] MEDS: oxyCODONE/ACETAMINOPHEN (*CRX) 10-325 MG TABLET 1 TAB PO (15:26)
== END 2024-07-03 15:45 | disposition home health service (06) ==
LOC: ANHSURGERY 06:30 → ANH3MEDSUR 12:22
PROVIDERS: PCP Physician Assistant Medical; Visit Provider Orthopaedic Surgery
PROC: (CPT 27447; principal; 2024-07-02 08:30)
DX: M17.12 Unilateral primary osteoarthritis, left knee (principal); M25.762 Osteophyte, left knee; G89.18 Other acute postprocedural pain; E78.5 Hyperlipidemia, unspecified; J45.909 Unspecified asthma, uncomplicated; E55.9 Vitamin D deficiency, unspecified; E53.8 Deficiency of other specified B group vitamins; M81.0 Age-related osteoporosis without current pathological fracture; G56.03 Carpal tunnel syndrome, bilateral upper limbs; G89.29 Other chronic pain; M25.562 Pain in left knee; M25.561 Pain in right knee; E66.9 Obesity, unspecified; Z68.41 Body mass index [BMI] 40.0-44.9, adult; Z79.1 Long term (current) use of non-steroidal anti-inflammatories (NSAID); Z98.890 Other specified postprocedural states; Z98.1 Arthrodesis status; Z90.49 Acquired absence of other specified parts of digestive tract; Z96.651 Presence of right artificial knee joint
CPT/HCPCS: 64447; 27447; 36415; 73560; 80048; 80307; 81003; 83036; 85025; 85610; 85730; 86850; 86900; 86901; 87641; 97110; 97116; 97161; 97165; 97530; 97535; A9270; C1713; C1776; J0171; J0690; J1100; J1171; J1741; J1885; J2250; J2270; J2405; J2704; J2795; J3010; J7120

== ENCOUNTER 2024-10-25 08:00 | Outpatient (RCR) | payer MEDICARE, SELFPAY ==
--- NOTE | 2024-08-09 15:52 | PTOPEVAL1 ---
Assessment and note entered by Ifrah Lott, PT Evaluation Information Assessment Status Evaluation Diagnosis Presence of unspec artificial knee, unilat OA unspec knee ICD-10 Condition Codes (PT) Pain in left knee M25.562,Abnormalities of gait and mobility R26.9,Weakness R53.1 Other ICD-10 Condition Codes ( edema R60.9 PT) Onset 07/02/24 Subjective Information Did HH for 3 weeks, was up to 95 degrees flexion. Pt was using CPM but didn't ever get up to 120 degrees. Reports can walk without the cane but will cause increased pain and swelling. 2 steps into home, one rail left side going up Tries not to take her prescription pain medication , is trying to just tylenol Reported Pain Level Pain Score 5: Self Report Assessment PT Clinical Summary Pt presents approx 5.5 weeks post L TKA. Demonstrates decreased ROM passively and actively, decreased strength compared to RLE, increased swelling, gait abnormality, and pain which is effecting her functional independence. Thus pt will greatly benefit from physical therapy in order to address deficits and improve her function . Plan of Care Interventions Electrical Stimulation,Gait Training,Hot Pack/Cold Pack,Intermittent Compression Pump,Manual Therapy ,Neuro Re-education,Patient/Caregiver Education, Therapeutic Activities,Therapeutic Exercise,Self- Care/Home Management,Other Other Interventions taping PT Services Indicated Yes Treatment Frequency and 1-3x weekly x 20 visits Duration These treatments will address the objective and functional deficits as defined above. The patient will be advanced safely and appropriately in order for the patient to progress towards his/her prior level of function. Additional exercises will be introduced and as well as a comprehensive home exercise program upon discharge, if needed, ?to ensure carryover of functional gains achieved in the clinic. This treatment plan has been reviewed and agreement upon by the patient.
--- NOTE | 2024-08-09 15:52 | OPREHPOC ---
Outpatient Therapy Plan of Care This is a Multidisciplinary Plan of Care that may contain components documented by all disciplines (PT, OT, and ST.) PT Problem 1 PT Problem #1 Knowledge Deficit PT Goal 1 Goal / Goal Update Pt will be independent in HEP Pt will verbalize understanding of diagnosis and prognosis Target Visit 10 PT Problem 2 PT Problem #2 Pain PT Goal 1 Goal / Goal Update Pt will report greatest pain level at 5/10 or less to improve ADLs and activities Target Visit 10 PT Goal 2 Goal / Goal Update Pt will report greatest pain level at 2/10 or less to improve ADLs and activities Target Visit 20 PT Problem 3 PT Problem #3 Impaired Range of Motion PT Goal 1 Goal / Goal Update Pt will demo passive ROM of 5-115 left knee to show improved mobility Target Visit 10 PT Goal 2 Goal / Goal Update Pt will demo active ROM 0-120 for mobility with stability
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
--- NOTE | 2024-10-27 16:21 | PTOPDC ---
Assessment and note entered by Verenice Rios, PT Discharge Information Assessment Status Discharge Diagnosis Presence of unspec artificial knee, unilat OA unspec knee ICD-10 Condition Codes (PT) Pain in left knee M25.562,Abnormalities of gait and mobility R26.9,Weakness R53.1 Other ICD-10 Condition Codes ( edema R60.9 PT) Onset 07/02/24 Subjective Information Pt reports was walking up/down the hill yesterday and picking up sticks in the yard, was mainly on her feet. She noticed only a slight ache that subsided with rest break. Today she feels so much better. Assessment PT Clinical Summary Pt received a total of 17 treatment sessions and demos excellent progress with therapy. Pt currently reports significant reduction in pain, demos improved active and passive ROM, strength and stability. She is now back to ambulating indep without AD with improved gait pattern and stability. Educated on importance of compliance of continued flexibility and strengthening HEPs to maintain gains in therapy, pt verbalized understanding. Skilled PT not necessary at this time, Pt DC'd. Plan of Care PT Services Indicated No
== END 2024-11-06 09:14 | disposition home or self-care (01) ==
LOC: ANHHIPT 08:00
PROVIDERS: PCP Physician Assistant Medical; Visit Provider Orthopaedic Surgery
DX: Z47.1 Aftercare following joint replacement surgery (principal); M17.10 Unilateral primary osteoarthritis, unspecified knee; Z96.651 Presence of right artificial knee joint
CPT/HCPCS: 97014; 97016; 97110; 97112; 97116; 97140; 97162; 97750; G0283